=== PATIENT | female | born 1970 | race Caucasian/White ===

== ENCOUNTER → 2016-10-21 | Outpatient (CLI) | payer OTHER ==
[~2016-10-21] MED LIST: AMOX500C PO; LEXA10TA PO; LORTA5 PO; MOBI15TA PO; SYNT75TA PO; XANA0.5T PO
== END ==
LOC: CLAB 06:42
DX: E55.9 Vitamin D deficiency, unspecified (principal)
CPT/HCPCS: 36415; 82306

== ENCOUNTER 2016-11-27 19:31 | Emergency (ER) | payer OTHER ==
[~2016-11-27] VITALS: Ht 162.6 cm; Wt 56.0 kg
[2016-11-27 19:34] VITALS: BP 125/56; PULSE 75; RESP 16; TEMP 97.8; O2SAT 96
--- NOTE | 2016-11-27 20:28 | PD ---
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 She states that blood from [place] splattered into her face. This had come from a trauma alert patient earlier. Source patient is known. The patient washed her face with a purple wipe before coming to the ER. She states that she is up-to-date with immunizations. She is up-to-date with tetanus and hepatitis B. She denies any ocular pain. No open sores on the face. She does not feel that any blood when into her mouth. Patient does not wear glasses or contacts [facility] Past Medical History Narrative Medical Depression, Asthma, hypothyroid Asthma: Yes Depression: Yes Reproductive: Yes (ovarian cyst) Thyroid Disease: Yes Tetanus Vaccination: < 5 Years ?: Not Dilation and Curettage (D&C): Yes Past Surgical History Abdominal Surgery: Yes (exp. lap) Appendectomy: Yes (1993) Joint Replacement: Yes (knee scope) Other Surgery: Yes (cervical ablation/breast augmentation) Social History Alcohol Use: Yes () Tobacco Use: No Substance Use: No Allergies-Medications (Allergen,Severity, Reaction): Coded Allergies: Codeine (Verified Allergy, Severe, 11/27/16) Phenergan (Verified Allergy, Severe, 11/27/16) Reported Meds & Prescriptions Reported Meds & Active Scripts Active Mobic (Meloxicam) 15 Mg Tab 15 Mg PO DAILY Nixa 5/325 (Hydrocodone/Acetaminophen 5/325) 5 mg/325 mg Tab 1 Tab PO Q6H PRN Reported Xanax 0.5 mg (Alprazolam) Alprazolam 0.5 mg Tab 1 Tab PO HS PRN Trimox 500 Mg Cap (Amoxicillin) 500 Mg Cap 500 Mg PO BID Lexapro (Escitalopram Oxalate) 10 Mg Tab 10 Mg PO DAILY Synthroid 75 mcg (Levothyroxine Sodium) 75 Mcg Tab 75 Mcg PO DAILY Review of Systems Except as stated in HPI: all other systems reviewed are Neg General / Constitutional: No: Fever, Chills Eyes: No: Diploplia, Blurred Vision, Photophobia, Drainage, Redness, Foreign Body Sensation, Pain, Tearing, Visual changes Physical Exam Narrative GENERAL: This is a well-nourished, well-developed patient, in no apparent distress. SKIN: No rashes, ecchymoses or lesions. Warm and dry. HEAD: Atraumatic. Normocephalic. EYES: PERRL, EOMI, no discharge or injection. No scleral icterus. EARS: Clear NOSE: Nasal turbinates appear normal. THROAT: Mucosa pink and moist. Airway patent. NECK: Trachea midline. supple, moves head freely. LUNGS: Clear to auscultation. CV: Regular in rhythm. ABDOMEN: Soft nontender. EXT: No clubbing cyanosis or edema. Data Data Last Documented VS Vital Signs Date Time Temp Pulse Resp B/P Pulse Ox O2 Delivery O2 Flow Rate FiO2 11/27/16 19:34 97.8 75 16 125/56 96 Room Air MDM Medical Decision Making Medical Screen Exam Complete: Yes Emergency Medical Condition: Yes Medical Record Reviewed: Yes Differential Diagnosis Differential diagnoses: Blood exposure, body fluid exposure, abrasion, contusion Narrative Course The patient's face is washed immediately here in the ER. 2 drops about cane are instilled in both eyes and she is irrigated at the eyewash station. I have confirmed the patient's immunizations status. Source patient is known and the poly area supervisor is notified that a rapid HIV is required. At this point post exposure prophylaxis is not indicated. The patient will be notified of the source patient's HIV status. A contact numbers been given. The poly area supervisor in the ER we'll notify the patient if the source patient's test is positive. At that time we will revisit post exposure prophylaxis. This is a body fluid/blood exposure Diagnosis Primary Impression: Exposure to blood or body fluid Additional Instructions: Rest. The diamond finishing supervisor will contact you if the source patient is positive. If you are not contacted and assumed the test to be negative. Follow-up with employee med. Disposition: 01 DISCHARGE HOME Condition: Stable Viral Worthington Nov 27, 2016 20:28
== END 2016-11-27 21:14 | disposition home or self-care (01) ==
LOC: NETRI 19:31
DX: Z77.21 Contact with and (suspected) exposure to potentially hazardous body fluids (principal); E03.9 Hypothyroidism, unspecified; J45.909 Unspecified asthma, uncomplicated; F32.9 Major depressive disorder, single episode, unspecified
CPT/HCPCS: 99283

== ENCOUNTER → 2017-04-01 | Outpatient (CLI) | payer OTHER ==
[2017-04-01 13:41] LABS: AUTOMATED NEUTROPHIL # 4.2 TH/MM3 (1.8-7.7); BASOPHIL # 0.1 TH/MM3 (0-0.2); BASOPHIL % 0.9 % (0.0-2.0); EOSINOPHIL # 0.1 TH/MM3 (0-0.4); EOSINOPHIL % 1.1 % (0.0-4.0); HEMATOCRIT 42.6 % (35.0-46.0); HEMO FLAGS DIFF FINAL; LYMPH % 28.1 % (9.0-44.0); LYMPHOCYTE # 1.9 TH/MM3 (1.0-4.8); MEAN CELL VOLUME 90.7 FL (80.0-100.0); MEAN CORPUSCULAR HEMOGLOBIN 30.5 PG (27.0-34.0); MEAN CORPUSCULAR HGB CONC 33.6 % (32.0-36.0); MONO % 5.6 % (0.0-8.0); NEUT % 64.3 % (16.0-70.0); PLATELET COUNT 202 TH/MM3 (150-450); RED CELL DISTRIBUTION WIDTH 11.8 % (11.6-17.2); WHITE BLOOD COUNT 6.6 TH/MM3 (4.0-11.0)
[2017-04-01 14:12] LABS: ANION GAP 10 MEQ/L (5-15); AST (GOT) 13 U/L (15-37); BLOOD UREA NITROGEN 10 MG/DL (7-18); CHLORIDE 106 MEQ/L (98-107); GLOMERULAR FILTRATION RATE 77 ML/MIN (>89); GLUCOSE,FASTING 82 MG/DL (74-99); POTASSIUM 3.9 MEQ/L (3.5-5.1); SODIUM (NA) 141 MEQ/L (136-145)
[2017-04-01 14:21] LABS: ALKALINE PHOSPHATASE 43 U/L (45-117); ALT (GPT) 20 U/L (10-53); FREE T3 2.32 PG/ML (2.18-3.98); FREE T4 1.04 NG/DL (0.76-1.46); HDL CHOLESTEROL 73.7 MG/DL (40.0-60.0); LDL CHOLESTEROL 55 MG/DL (0-99); TOTAL BILIRUBIN ADULT 0.7 MG/DL (0.2-1.0)
== END ==
LOC: CLAB 13:11
DX: E55.9 Vitamin D deficiency, unspecified (principal); E03.9 Hypothyroidism, unspecified
CPT/HCPCS: 36415; 80053; 80061; 82306; 84439; 84443; 84481; 85025

== ENCOUNTER → 2017-08-04 | Outpatient (CLI) | payer OTHER ==
[2017-08-04 09:44] LABS: AUTOMATED NEUTROPHIL # 3.1 TH/MM3 (1.8-7.7); BASOPHIL # 0.1 TH/MM3 (0-0.2); BASOPHIL % 1.4 % (0.0-2.0); EOSINOPHIL # 0.1 TH/MM3 (0-0.4); EOSINOPHIL % 1.8 % (0.0-4.0); HEMATOCRIT 42.4 % (35.0-46.0); HEMO FLAGS DIFF FINAL; LYMPH % 32.2 % (9.0-44.0); LYMPHOCYTE # 1.7 TH/MM3 (1.0-4.8); MEAN CELL VOLUME 90.5 FL (80.0-100.0); MEAN CORPUSCULAR HEMOGLOBIN 30.9 PG (27.0-34.0); MEAN CORPUSCULAR HGB CONC 34.2 % (32.0-36.0); MONO % 7.1 % (0.0-8.0); NEUT % 57.5 % (16.0-70.0); PLATELET COUNT 191 TH/MM3 (150-450); RED BLOOD COUNT 4.69 MIL/MM3 (4.00-5.30); RED CELL DISTRIBUTION WIDTH 12.3 % (11.6-17.2); WHITE BLOOD COUNT 5.4 TH/MM3 (4.0-11.0)
[2017-08-04 10:18] LABS: ANION GAP 7 MEQ/L (5-15); AST (GOT) 11 U/L (15-37); BICARBONATE 24.8 MEQ/L (21.0-32.0); BLOOD UREA NITROGEN 19 MG/DL (7-18); CHLORIDE 108 MEQ/L (98-107); GLOMERULAR FILTRATION RATE 68 ML/MIN (>89); GLUCOSE,FASTING 80 MG/DL (74-99); POTASSIUM 4.4 MEQ/L (3.5-5.1); SODIUM (NA) 140 MEQ/L (136-145)
[2017-08-04 10:29] LABS: ALKALINE PHOSPHATASE 45 U/L (45-117); ALT (GPT) 18 U/L (10-53); FREE T3 2.28 PG/ML (2.18-3.98); FREE T4 0.95 NG/DL (0.76-1.46); LDL CHOLESTEROL 63 MG/DL (0-99); TOTAL BILIRUBIN ADULT 0.7 MG/DL (0.2-1.0); TRANSFERRIN IRON PROFILE 270 MG/DL (200-360)
[2017-08-04 13:06] LABS: HEMOGLOBIN A1a 1.3 %; HEMOGLOBIN A1b 1.4 %; HEMOGLOBIN Ao 86.9 %; HEMOGLOBIN LA1C 1.9 %; HEMOGLOBIN P3 3.4 %
[2017-08-05 17:50] LABS: DEHYDROEPIANDROSTERONE SULFATE 109 mcg/dL (19-231)
[2017-08-06 16:24] LABS: BIOAVAILABLE TESTOSTERONE 1.2 ng/dL; ESTRADIOL 81 pg/mL
[2017-08-07 17:51] LABS: IGF ZSCORE FEMALE 0.2 SD (-2.0 - +2.0); IGF ZSCORE MALE ND (()); IGF-1 GC/MS 159 ng/mL (52-328)
== END ==
LOC: CLAB 08:53
DX: E03.9 Hypothyroidism, unspecified (principal); E55.9 Vitamin D deficiency, unspecified; E56.9 Vitamin deficiency, unspecified; R63.5 Abnormal weight gain; R79.9 Abnormal finding of blood chemistry, unspecified; M62.50 Muscle wasting and atrophy, not elsewhere classified, unspecified site; R60.1 Generalized edema; M79.1 Myalgia; G47.9 Sleep disorder, unspecified
CPT/HCPCS: 36415; 80053; 80061; 82306; 82533; 82627; 82671; 83036; 83540; 83550; 84144; 84305; 84403; 84410; 84439; 84443; 84481; 85025; 86141

== ENCOUNTER 2017-09-16 11:44 | Day surgery (SDC) | payer OTHER ==
[~2017-09-16] VITALS: Ht 165.1 cm; Wt 61.2 kg
[2017-09-16] MEDS ORDERED: IOHEXOL 350 MG/ML 50 ML BTL (for Cath Lab) OTHER ONE (11:45)
[2017-09-16 12:26] VITALS: BP 114/58; PULSE 75; RESP 18; TEMP 98; O2SAT 96
[2017-09-16] MEDS ORDERED: ARMO60TA PO (12:33)
[2017-09-16] MEDS ORDERED: VENTAER INH (12:33)
[2017-09-16] MEDS ORDERED: TOPA50TA7 PO (12:33)
[2017-09-16 12:57] LABS: AUTOMATED NEUTROPHIL # 3.7 TH/MM3 (1.8-7.7); BASOPHIL # 0.1 TH/MM3 (0-0.2); BASOPHIL % 0.9 % (0.0-2.0); EOSINOPHIL # 0.1 TH/MM3 (0-0.4); EOSINOPHIL % 1.8 % (0.0-4.0); HEMATOCRIT 39.9 % (35.0-46.0); HEMOGLOBIN 13.9 GM/DL (11.6-15.3); LYMPH % 30.6 % (9.0-44.0); LYMPHOCYTE # 1.9 TH/MM3 (1.0-4.8); MEAN CELL VOLUME 91.1 FL (80.0-100.0); MEAN CORPUSCULAR HEMOGLOBIN 31.7 PG (27.0-34.0); MEAN CORPUSCULAR HGB CONC 34.8 % (32.0-36.0); MEAN PLATELET VOLUME 9.8 FL (7.0-11.0); MONO % 5.9 % (0.0-8.0); MONOCYTE # 0.4 TH/MM3 (0-0.9); NEUT % 60.8 % (16.0-70.0); PLATELET COUNT 197 TH/MM3 (150-450); RED BLOOD COUNT 4.38 MIL/MM3 (4.00-5.30); RED CELL DISTRIBUTION WIDTH 12.3 % (11.6-17.2); WHITE BLOOD COUNT 6.1 TH/MM3 (4.0-11.0)
[2017-09-16] MEDS ORDERED: NS 1000P @30 MLS/HR (KVO) IV SCH (13:00)
[2017-09-16 13:10] LABS: INTERNATIONAL NORMALIZED RATIO 1.2 RATIO
[2017-09-16 13:33] LABS: BICARBONATE 27.5 MEQ/L (21.0-32.0); BLOOD UREA NITROGEN 15 MG/DL (7-18); CALCIUM 8.4 MG/DL (8.5-10.1); CHLORIDE 105 MEQ/L (98-107); CREATININE 0.75 MG/DL (0.50-1.00); GLOMERULAR FILTRATION RATE 82 ML/MIN (>89); GLUCOSE,RANDOM 81 MG/DL (74-106); SODIUM (NA) 140 MEQ/L (136-145)
[2017-09-16] MEDS ORDERED: HEPARIN-NS/PF INJ 500 ML ONE (13:50)
[2017-09-16] MEDS ORDERED: NITROGLYCERIN INJ 5 ML ONE (13:50)
[2017-09-16] MEDS ORDERED: HEPARIN SODIUM - IV 10,000 UNITS/10 ML VIAL ONE (13:50)
[2017-09-16] MEDS ORDERED: VERAPAMIL HCL 5 MG/2 ML VIAL ONE (13:50)
[2017-09-16] MEDS ORDERED: diphenhydrAMINE HCL 50 MG/ML VIAL ONE (14:14)
--- NOTE | 2017-09-16 14:43 | CATHPROC ---
[employer] HIS Report Study Information Study Number Admission Scheduled Start Study Start [id number] Sep 16 2017 11:44AM 09/16/2017 Sep 16 2017 1:33PM [facility] Cardiac Catheterization Admit Source Facility Department Other [facility] Physician and Clinical Staff Initial Alden Saini Genetic Coordinator Ericka Spears RN Recorder Michelle Kilpatrick,LEAD TECHNICIAN TECH2 Scrub Laura Falcon,RT(R) Procedures Performed Procedure Location (Site) Vessel Name Coronary Angiograms LCA Left Coronary Coronary Angiograms RCA Right Coronary LV Gram-hand inj. LV LV Ventricle Wire insertion Radial (right) Radial Art. Equipment Time Counter Top Assembler Description Size Mfg Part Number Used/Scraped TRANSDUCER, TRUWAVE [id number] 13:49 CALDERON MAGANA * Used W/STOCKCOCK *[id number] *[id number] WIRE, HYDROSTEER 150CM [id number] 14:22 DAIG/[employer]. [employer] 150CM Used ANGLED GLIDE *[id number] 13:49 MALLINCKRODT SYRINGE, ANGIOMAT 150ML 150ML *[id number] Used [employer] CONCEPT DRAPE, RADIAL FEMORAL FULL 13:49 * [id number] *[id number] Used DEVELOPMENT BODY [id number] 13:49 [employer] PACK, CCL CUSTOM * Used *[id number] 13:49 [employer] SUPPORT, ARTERIAL ADULT 61312 *[id number] Used [id number] 13:49 Kleen Extreme PACER PEN, SKIN DUAL W/ RULER * Used *[id number] BAND, RADIAL COMPRESSION TR [id number] 14:30 Bulbstorm 24CM Used SHORT 24 *[id number] SHEATH, FR6 RADIAL PRELUDE 13:49 Bulbstorm FR 6 [id number] Used EASE 11CM [id number] 13:49 [employer] WIRE, EXCHANGE 260CM 3MMJ 260CM Used *[id number] 13:49 NAMIC MANIFOLD, 4 PORT * Used *[id number] 13:49 NYCOMED OMNIPAQUE, 350 MG, 150ML 150ML [id number] Used [id number] 13:49 [employer]ore BLANKET,WARM AIR CCL * Used *[id number] CATHETER, FR5 OPTITORQUE [id number] 14:08 [email or web address] MEDICAL FR 5 Used RADIAL TIG 4.0 *[id number] Equipment Model, Serial, Lot Number and Expiration Data Description Model Number Serial Number Lot Number Expiration Date FADI LEYVA 150CM [id number] 05-28-2020 ANGLED GLIDE History: Current Medications Medication Dosage/Unit Route Frequency Last Date/Time Taken Albuterol Synthroid History: Allergies Allergy Reaction codeine Phenergan promethazine History: Risk Factors Family History of Hypertension Dyslipidemia Previous IL Previous Heart Failure Premature CAD No No No No No Prior Valve Prior PCI Prior CABG Surgery No No No Cerebrovascular Peripheral Artery Chronic Lung On Dialysis Diabetes Disease Disease Disease No No No Yes No History: Symptoms/Diagnosis Selection Items Chest pain SOB History: Stress Tests Stress or Imaging Studies Performed No History: Other Current Smoker No Labs Hgb (g/dl) Hct (%) WBC (l/cumm) Platelets (thousands) 11.60-17.00 35.00-51.00 4.00-11.00 150.00-450.00 13.9 39.9 6.1 197 Glucose (mg/dl) BUN (mg/dl) Creatinine (mg/dl) BUN:Creatinine (1:x) 74.00-106.00 7.00-18.00 0.50-1.30 10.00-20.00 81 15 0.7 21.4 Na (meq/l) K (meq/l) 136.00-145.00 3.50-5.10 140 3.6 INR (PTT:PT) 0.90-1.10 1.2 CPK-MB (ng/ML) 0.50-3.60 Not Drawn Medication Medication Total Dose (Bolus/Oral) Medication Total Dosage/Unit 1% XYLOCAINE 20 mL BENADRYL 50 mg RADIAL COCKTAIL 5 mL (Bolus) Medications (Bolus/Oral) Medication Time Given Dosage/Unit Administered By Reason BENADRYL 09/16/2017 2:16:00 PM 50 mg Ericka Spears 50 mg BENADRYL given in lab by Ericka Spears, RN in Left Antecubital via Peripheral IV. Ordered by Alden Murdock. 1% XYLOCAINE 09/16/2017 2:17:31 PM 20 mL Alden Murdock 20 mL 1% XYLOCAINE given in lab by Alden Murdock in Right Radial via Subcutaneous. Ordered by Aguilar Murdock. Ntg 200mcg Verapamil 2.5mg Heparin RADIAL COCKTAIL 09/16/2017 2:20:22 PM 5 mL (Bolus) Alden Murdock 2500U 5 mL (Bolus) RADIAL COCKTAIL given in lab by Alden Murdock in Right Radial via Radial. Using [Solution Name]. Ordered by Alden Murdock. Reason: Ntg 200mcg Verapamil 2.5mg Heparin 2500U. Medication (Drip) Medication Time Given Dosage/Unit Concentration/Unit Diluent (ml) Solution IV Bolus 09/16/2017 2:34:31 PM 500 mL (Bolus) NaCl .9 500 mL (Bolus) IV Bolus given in lab by Ericka Spears, RN via Peripheral IV. Using NaCl .9. Ordered by Alden Murdock. IV Solutions 09/16/2017 1:50:17 PM 0 mL (IV) 500 NaCl .9 Patient arrived on IV Solutions in Left Antecubital via Peripheral IV. Pump/Drip Flow = 20 ml/hr usin g NaCl .9. Initial Case Assessment Cardiovascular HR Rhythm NIBP Chest Pain 65 SR 98/55 0 Edema Present Skin color Skin None Normal Warm Dry Circulatory - Right Pulses Dorsalis Pedis Femoral Radial 2 2 3 Scale (0,1,2,3,4,d) Scale (0,1,2,3,4,d) Neurological State Oriented to time-place- Alert Moves all extremities person Respiration - General Respiration Rate SpO2 (%) (B/min) 11 100 Chronological Log Time Study Chronological Log 13:49:31 Patient arrived via Bed. 13:49:35 Patient Name, D.O.B, / Armband Verified By R.N. 13:49:36 Consent signed by the physician and the patient and verified by the [facility] staff. 13:49:39 Pre-op and post- op instructions given; patient acknowledges understanding of instructions. Verbal Stimulation=~VERBAL~ Physical Stimulation=~PHYSICAL~ Airway=~AIRWAY~ Respiration=~RESPIR ATION~ 13:49:42 TOTAL=~TOTAL~. (0=absent, 1=limited, 2=present) 13:49:46 Presedation assessment performed by [facility] RN. 13:49:52 Allens test performed on the right radial and ulnar artery. 13:49:59 Patient has been NPO for More than 6Hrs. 13:50:02 Skin Breakdown- none 13:50:03 Patient Warmer Placed on the Table. 13:50:09 Laura Prominences Protected 13:50:15 A # 20 IV was noted in the Antecubital (left). Grade = patent 13:50:17 Patient arrived on IV Solutions in Left Antecubital via Peripheral IV. Pump/Drip Flow = 20 ml/hr using NaCl .9. 13:50:19 History and physical on the chart or being dictated. Vitals capture started with the following parameters, Patient=Adult, Interval=5 min, Initial Pr tiepqr=204 mmHg, 13:50:23 Deflation Rate=5 mmHg, Cuff placed on Left Arm 13:50:55 HR=65 bpm, NIBP=98/55 mmhg, YqJ5=762.0 %, Resp=10 B/min, Pain=0, Mariangel=10, Naylor=2 Assessment: Initial Case, HR=65 BPM, Rhythm=SR, NIBP=98/55 mmhg, Chest Pain=0, Edema=None, [place] r=Normal, Skin = Warm, Dry 13:52:22 Right Pulses: Jaden Ped=2, Femoral=2, Radial=3 Neurological: State=Alert, Ox3, GILL Respiration: Resp=11 B/min, BkS5=543 % 13:53:54 Right Radial and groin prepped with 2% chlorhexidine, and draped after a 3 min. waiting nuno e. 13:55:52 HR=61 bpm, NIBP=99/53 mmhg, Resp=15 B/min, Pain=0, Mariangel=10, Naylor=2 14:00:53 HR=65 bpm, YAPO=646/58 mmhg, Resp=18 B/min, Pain=0, Mariangel=10, Naylor=2 14:04:22 Pressure channel 1 zeroed. 14:05:55 HR=64 bpm, NIBP=98/56 mmhg, Resp=15 B/min, Pain=0, Mariangel=10, Naylor=2 14:06:11 Reference ECG taken 14:09:00 MD paged 14:10:54 HR=65 bpm, NIBP=97/59 mmhg, Resp=19 B/min, Pain=0, Mariangel=10, Naylor=2 14:14:15 MD arrived. 14:15:55 HR=69 bpm, WPLC=944/56 mmhg, SpO2=99.0 %, Resp=35 B/min, Pain=0, Mariangel=10, Naylor=2 14:16:00 50 mg BENADRYL given in lab by Ericka Spears RN in Left Antecubital via Peripheral IV. O rdered by Alden Murdock. Time Out. Correct patient, correct procedure, correct physician, power injector not loaded with contrast with surgical 14:16:42 team present. Time Out Concurred by MD and individual staff in procedure. 14:17:19 Case Start 14:17:31 20 mL 1% XYLOCAINE given in lab by Alden Murdock in Right Radial via Subcutaneous. Ordered b y Alden Murdock. 14:19:32 Access site was Right Radial Artery. 14:19:55 A wire was inserted via Radial (right). A SHEATH, FR6 RADIAL PRELUDE EASE 11CM FR 6 was advanced into the Radial (right) using the Perc utaneous 14:20:11 technique. 5 mL (Bolus) RADIAL COCKTAIL given in lab by Alden Murdock in Right Radial via Radial. Using [So lution Name]. Ordered 14:: by Alden Murdock. Reason: Ntg 200mcg Verapamil 2.5mg Heparin 2500U. 14:21:00 HR=69 bpm, YBRV=225/54 mmhg, YtB8=610.0 %, Resp=11 B/min, Pain=0, Mariangel=10, Naylor=2 A CATHETER, FR5 OPTITORQUE RADIAL TIG 4.0 FR 5 was advanced over a wire. OMNIPAQUE, 350 MG, 150 ML 150ML 14:21:31 was used for injections. 14:22:33 A WIRE, HYDROSTEER 150CM ANGLED GLIDE 150CM was inserted via Radial (right). 14:23:09 The previous wire was exchanged for a WIRE, EXCHANGE 260CM 3MMJ 260CM. 14:24:42 The RCA was injected and visualized at various angles. OMNIPAQUE, 350 MG, 150ML 150ML use d. Recorded Pressure: Ao, HR=70, Condition=Condition 1 14:25:20 (Aorta) Ao 97/61/77 14:25:31 The LCA was injected and visualized at various angles. OMNIPAQUE, 350 MG, 150ML 150ML use d. 14:26:01 HR=70 bpm, HXGH=647/50 mmhg, SpO2=99.0 %, Resp=19 B/min 14:26:58 Catheter was removed A MPA-2 INFINITI CATHETER FR 6 was advanced over a wire. OMNIPAQUE, 350 MG, 150ML 150ML was us ed for 14:27:33 injections. Recorded Pressure: LV, HR=69, Condition=Condition 1 14:28:43 (Left Ventricle) LV 127/12/16 Recorded Pressure: LV, Ao, HR=72, Condition=Condition 1 14:29:00 (Left Ventricle) LV 105/10/15, (Aorta) Ao 121/64/90 14:29:00 The LV was manually injected with 10 cc's and visualized. OMNIPAQUE, 350 MG, 150ML 150ML u sed. Recorded Pressure: LV, HR=69, Condition=Condition 1 14:29:05 (Left Ventricle) LV 116/59/75 14:29:14 Catheter was removed 14:29:55 Case End 14:31:00 HR=74 bpm, PYND=452/48 mmhg, SkR4=567.0 %, Resp=15 B/min, Pain=0, Mariangel=10, Naylor=2 14:31:43 No case complications noted. 14:31:47 Cine recording checked. 14:31:51 Bedside Report will be given. Radial Compression Device Used. 10 mLs of air placed in BAND, RADIAL COMPRESSION TR SHORT 24 2 4CM. Affected 14:32:09 hand 100 % O2 saturation. 14:34:31 500 mL (Bolus) IV Bolus given in lab by Ericka Spears, RN via Peripheral IV. Using NaCl .9. Ordered by Alden Murdock. 14:35:46 Vitals capture stopped. 14:41:58 Patient moved to stretcher 14:42:06 Patient transported to DOCU End Study - Contrast Media Used In Study Contrast Total Opened (mL) Total Used (mL) Total Wasted (mL) Omnipaque 45 45 0 End Study - Maximum Contrast Load Max Contrast Load (mL) 438.3 End Study - Radiation Exposure Fluoro Time (minutes) 2.7 End Study - Sheaths Sheaths Pulled By Sheath Hold Time (min) Laura Falcon End Study - Patient Disposition Complications Transferred To Interventional Outcome No Telemetry Bed No attempt made
[2017-09-16] MEDS ORDERED: MISC INFORMATION XX ONE (14:45)
--- NOTE | 2017-09-16 15:12 | MA ---
cc: JERMAINE MARIO M.D. DATE: 09/16/2017. PROCEDURE PERFORMED: Left heart catheterization, selective coronary angiography, left ventriculography. DESCRIPTION OF THE PROCEDURE IN DETAIL: The patient was brought to the cardiac catheterization laboratory in a fasting state after having signed informed consent. The right radial region was prepped and draped as per policy and anesthetized with 1% lidocaine. Arterial access was obtained via the right radial artery and a 6-Tongan sheath placed. Coronary arteriography was performed using a Alliance catheter. Left ventriculography was done using a multipurpose catheter. There were no apparent immediate complications. A radial artery compression band was applied to her right wrist at the end of the case to achieve good hemostasis. HEMODYNAMIC RESULTS: Left ventricle 105 with an end-diastolic pressure of 10. Aorta 121/64 with a mean of 90. There was no significant transvalvular aortic gradient on pullback of the pigtail catheter. CORONARY ARTERIOGRAPHY: The left main is normal. The left anterior descending gives rise to a medium-sized diagonal. No disease is seen in the LAD system. The left circumflex is a small vessel giving rise to a medium-sized obtuse marginal. No disease is seen in the left circumflex system. The right coronary artery is a fairly large dominant vessel with no disease. LEFT VENTRICULOGRAPHY: Contrast injection of the left ventricle reveals no segmental wall motion abnormalities. Ejection fraction is estimated at 65%. CONCLUSION: 1. Angiographically normal coronary arteries. 2. Normal left ventricular function with estimated ejection fraction of 65%. MD OANH Mobley/COLE /2:31 PM /2:51 PM DANICA
--- NOTE | 2017-09-17 13:02 | EKG ---
Date Performed: 09/16/2017 Time Performed: 12:39:54 PTAGE: 47 years EKG: Sinus rhythm . Normal ECG NO PREVIOUS TRACING DOCTOR: Hans Liu Interpretating Date/Time 09/17/2017 13:00:33
== END 2017-09-16 17:44 | disposition home or self-care (01) ==
LOC: HDIC 11:44 → HDOC 11:44
PROVIDERS: ATTEND Internal Medicine Cardiovascular Disease
DX: R07.9 Chest pain, unspecified (principal)
CPT/HCPCS: 80048; 84702; 85025; 85610; 85730; 93005; 93458; C1769; C1893; J1200; J1644; J7030; Q9967

== ENCOUNTER → 2017-10-26 | Outpatient (CLI) | payer OTHER ==
[~2017-10-26] MED LIST changes: -AMOX500C PO; +ARMO60TA PO; -LEXA10TA PO; -LORTA5 PO; -MOBI15TA PO; -SYNT75TA PO; +TOPA50TA7 PO; +VENTAER INH; -XANA0.5T PO
[2017-10-26 08:12] LABS: AUTOMATED NEUTROPHIL # 2.7 TH/MM3 (1.8-7.7); BASOPHIL % 1.1 % (0.0-2.0); EOSINOPHIL # 0.1 TH/MM3 (0-0.4); EOSINOPHIL % 2.4 % (0.0-4.0); HEMATOCRIT 40.5 % (35.0-46.0); HEMOGLOBIN 14.2 GM/DL (11.6-15.3); LYMPH % 30.5 % (9.0-44.0); LYMPHOCYTE # 1.4 TH/MM3 (1.0-4.8); MEAN CELL VOLUME 89.7 FL (80.0-100.0); MEAN CORPUSCULAR HEMOGLOBIN 31.4 PG (27.0-34.0); MONO % 6.6 % (0.0-8.0); MONOCYTE # 0.3 TH/MM3 (0-0.9); NEUT % 59.4 % (16.0-70.0); PLATELET COUNT 190 TH/MM3 (150-450); RED BLOOD COUNT 4.52 MIL/MM3 (4.00-5.30); WHITE BLOOD COUNT 4.5 TH/MM3 (4.0-11.0)
[2017-10-26 08:41] LABS: ALBUMIN 4.2 GM/DL (3.4-5.0); AST (GOT) 15 U/L (15-37); BICARBONATE 23.9 MEQ/L (21.0-32.0); BLOOD UREA NITROGEN 12 MG/DL (7-18); CALCIUM 8.9 MG/DL (8.5-10.1); CHLORIDE 108 MEQ/L (98-107); CREATININE 0.94 MG/DL (0.50-1.00); GLOMERULAR FILTRATION RATE 64 ML/MIN (>89); GLUCOSE,FASTING 84 MG/DL (74-99); SODIUM (NA) 140 MEQ/L (136-145)
[2017-10-26 08:42] LABS: CHOLESTEROL 132 MG/DL (120-200)
[2017-10-26 09:07] LABS: ALKALINE PHOSPHATASE 42 U/L (45-117); ALT (GPT) 16 U/L (10-53); FOLATE 15.7 NG/ML (3.1-17.5); FREE T4 0.77 NG/DL (0.76-1.46); HDL CHOLESTEROL 65.9 MG/DL (40.0-60.0); LDL CHOLESTEROL 55 MG/DL (0-99); PHOSPHORUS 3.1 MG/DL (2.5-4.9); TOTAL BILIRUBIN ADULT 0.7 MG/DL (0.2-1.0); TOTAL PROTEIN 7.3 GM/DL (6.4-8.2); TRIGLYCERIDES 57 MG/DL (42-150)
[2017-10-28 14:51] LABS: BIOAVAILABLE TESTOSTERONE 1.1 ng/dL; ESTRADIOL 144 pg/mL; ESTRONE 82 pg/mL; FREE TESTOSTERONE 0.19 ng/dL (0.06-0.95); TOTAL TESTOSTERONE 19 ng/dL (8-60)
[2017-10-28 15:51] LABS: CARDIO CRP 0.3 mg/L
[2017-10-28 23:54] LABS: DEHYDROEPIANDROSTERONE SULFATE 87 mcg/dL (19-231)
== END ==
LOC: CLAB 07:22
DX: R60.1 Generalized edema (principal); R53.83 Other fatigue; R19.8 Other specified symptoms and signs involving the digestive system and abdomen; E34.9 Endocrine disorder, unspecified; R63.5 Abnormal weight gain; R63.4 Abnormal weight loss; E07.9 Disorder of thyroid, unspecified; G47.9 Sleep disorder, unspecified; M79.1 Myalgia; R79.9 Abnormal finding of blood chemistry, unspecified
CPT/HCPCS: 36415; 80053; 80061; 82306; 82607; 82627; 82671; 82746; 83090; 83525; 84100; 84144; 84305; 84403; 84410; 84439; 84443; 85025; 86141

== ENCOUNTER → 2017-12-23 | Outpatient (CLI) | payer OTHER ==
[2017-12-23 09:37] LABS: FREE T3 3.29 PG/ML (2.18-3.98); FREE T4 0.97 NG/DL (0.76-1.46)
[2017-12-24 17:52] LABS: DEHYDROEPIANDROSTERONE SULFATE 101 mcg/dL (19-231)
[2017-12-25 19:53] LABS: PROGESTERONE 3.4 ng/mL
[2017-12-26 23:31] LABS: ESTRADIOL 60 pg/mL; ESTRONE 52 pg/mL; FREE TESTOSTERONE 0.19 ng/dL (0.06-0.95); TOTAL TESTOSTERONE 16 ng/dL (8-60)
== END ==
LOC: CLAB 08:32
DX: R79.9 Abnormal finding of blood chemistry, unspecified (principal); R68.82 Decreased libido; R53.83 Other fatigue; E34.9 Endocrine disorder, unspecified; N95.2 Postmenopausal atrophic vaginitis; G47.9 Sleep disorder, unspecified; E07.9 Disorder of thyroid, unspecified; E56.9 Vitamin deficiency, unspecified; R63.5 Abnormal weight gain; M62.50 Muscle wasting and atrophy, not elsewhere classified, unspecified site
CPT/HCPCS: 36415; 82627; 82671; 84144; 84305; 84403; 84410; 84439; 84443; 84481